=== PATIENT | male | born 1985 | race Caucasian/White ===

== ENCOUNTER 2019-10-23 16:31 | Emergency (ER) | payer OTHER ==
[~2019-10-23] VITALS: Ht 167.6 cm; Wt 68.0 kg
[2019-10-23] MEDS ORDERED: FLONASE 0.05%50 MCG NARES (16:40)
[2019-10-23] MEDS ORDERED: PROAIR HFA8.5 GM INH (16:40)
[2019-10-23] MEDS ORDERED: EUTHYROX100 MCG PO (16:40)
[2019-10-23] MEDS ORDERED: FAMOTIDINE 20 M20 MG PO (18:30)
[2019-10-23] MEDS ORDERED: PREDNISONE 20 M20 MG PO (18:30)
[2019-10-23 18:50] VITALS: BP 104/69
--- NOTE | 2019-10-24 09:53 | EKG ---
[place] [address] ELECTROCARDIOGRAM REPORT Name: MICHAEL MALONEY Room: [facility]#: [id number] Admission: 10/23/19 Attend Phys: Discharge: 10/23/19 Date of : 89 Date of Service: 10/23/191827 Report #: [id number] THIS REPORT FOR: //name// [facility] ED Test Date: 2019-10-23 Test Time: 18:28:45 Pat Name: MICHAEL MALONEY Department: Room: Gender: Blood And Plasma Laboratory Assistant: [facility] : 1985 Requested By: Imani Ferrera Order Number: [id number] MD: Oskar Pablo Measurements Intervals [place] Rate: 88 P: 74 W[place]: 150 QRS: 57 QRSD: 75 T: 61 QT: 334 QTc: 404 Interpretive Statements Sinus rhythm Baseline wander in lead(s) V4 No previous ECG available for comparison Electronically Signed On 10-24-2019 9:52:22 CDT by Oskar Pablo [email or web address] <ELECTRONICALLY SIGNED> By: Oskar Pablo MD, [facility] 10/24/19 0952 [id number] 27 Oskar Pablo MD, [facility] /EPI
== END 2019-10-23 18:52 | disposition home or self-care (01) ==
LOC: M.ERS 16:31
DX: R22.9 Localized swelling, mass and lump, unspecified (principal); T38.0X5A Adverse effect of glucocorticoids and synthetic analogues, initial encounter; E03.9 Hypothyroidism, unspecified; J45.909 Unspecified asthma, uncomplicated; Z88.0 Allergy status to penicillin; Y92.89 Other specified places as the place of occurrence of the external cause